=== PATIENT | male | born 1945 | race Caucasian/White ===

== ENCOUNTER 2017-11-02 14:36 | Emergency (ER) | payer OTHER ==
[2017-11-02 14:37] VITALS: BMI 26.6
[2017-11-02 14:47] VITALS: BP 156/72; RESP 16; TEMP 98.6; O2SAT 99
[2017-11-02 16:20] LABS: BASO % 0.5 % (0.0-2.0); EOS # 0.2 K/uL (0.0-0.7); EOS % 2.4 % (0.0-4.0); HEMOGLOBIN 15.5 g/dL (12.0-18.0); LYMPH % 23.5 % (20.0-40.0); MEAN CELL VOLUME 101.2 fl (80.0-94.0); MEAN CORPUSCULAR HEMOGLOBIN 34.7 pg (27.0-31.0); MEAN CORPUSCULAR HGB CONC 34.3 g/dL (33.0-37.0); MEAN PLATELET VOLUME 8.9 fl (7.2-11.7); NEUT # 5.1 K/uL (1.8-7.0); NEUT % 61.6 % (50.0-75.0); NRBC % 0.1 % (0.0-0.0); RBC 4.45 Mil/uL (4.40-5.90); RED CELL DISTRIBUTION WIDTH 12.9 % (11.5-14.5); WHITE BLOOD COUNT 8.3 K/uL (4.8-10.8)
[2017-11-02 16:36] LABS: CALCIUM 9.5 mg/dL (8.4-10.2); GFR NON-AFRICAN AMERICAN > 60; LIPASE 125 U/L (23-300)
[2017-11-02 16:42] LABS: ALB/GLOB RATIO 1.3 (1.0-2.1); ALBUMIN 4.5 g/dL (3.5-5.0); ALT/SGPT 39 U/L (21-72); AST/SGOT 67 U/L (17-59); BLOOD UREA NITROGEN 14 mg/dl (9-20)
--- NOTE | 2017-11-02 16:53 | RAD ---
Date of service: 11/02/2017 PROCEDURE: Right Foot Radiographs. HISTORY: foot pain COMPARISON: None. FINDINGS: BONES: Normal. No fracture. JOINTS: Normal. SOFT TISSUES: Normal. OTHER FINDINGS: None. IMPRESSION: Normal right foot radiographs.
--- NOTE | 2017-11-02 17:29 | US ---
Date of service: 11/02/2017 HISTORY: epigastric abd pain COMPARISON: None available. TECHNIQUE: Sonographic evaluation of the right upper quadrant of the abdomen. FINDINGS: LIVER: Measures 14.0 cm in length and appears otherwise unremarkable. No focal hepatic mass identified. The main portal vein appears patent with normal directional flow. No intrahepatic bile duct dilatation. GALLBLADDER: No gallstones. No gallbladder wall thickening or pericholecystic edema. Negative sonographic Goldberg's sign as assessed by the medical and health services manager. COMMON BILE DUCT: Measures 3 mm. PANCREAS: Not well-visualized. RIGHT KIDNEY: Measures 9.0 x 5.0 x 4.5 cm. No obstructing calculus or hydronephrosis identified. 0.9 x 0.8 x 0.7 cm hypoechoic, probable cyst. AORTA: Limited visualization appears grossly unremarkable. IVC: Limited visualization appears grossly unremarkable. OTHER FINDINGS: None . IMPRESSION: 0.9 cm probable right renal cyst. [place]
--- NOTE | 2017-11-02 18:03 | RAD ---
Date of service: 11/02/2017 HISTORY: epigastric abd pain COMPARISON: Chest radiographs 02/17/2014. FINDINGS: LUNGS: No active pulmonary disease. PLEURA: No significant pleural effusion identified, no pneumothorax apparent. CARDIOVASCULAR: Normal. OSSEOUS STRUCTURES: No significant abnormalities. VISUALIZED UPPER ABDOMEN: Normal. OTHER FINDINGS: None. IMPRESSION: No interval acute cardiopulmonary disease appreciated.
--- NOTE | 2017-11-02 19:04 | ED PDOC ---
HPI: General Adult Time Seen by Provider: 11/02/17 15:23 Chief Complaint (Nursing): GI Problem History Per: Patient Additional Complaint(s): Pt. states for the past 3 months he's had intermittent, non-radiating epigastric pain which seems to arise when he bends forward and after he eats. Also states that he's had atraumatic pain on the bottom of the R foot x 3 months which is worse when he walks. Denies chest pain, back pain, N/V/D, fever , trauma, SOB, CORRIGAN, palpitations. Of note, pt. states he had a stress test done "4 months" ago which was normal. Past Medical History Reviewed: Historical Data, Nursing Documentation, Vital Signs Vital Signs: Last Vital Signs Temp 98.6 F 11/02/17 14:45 Pulse 75 11/02/17 19:46 Resp 16 11/02/17 14:45 BP 156/72 H 11/02/17 14:45 Pulse Ox 99 11/02/17 19:46 - Medical History PMH: HTN Denies: Chronic Kidney Disease - Family History Family History: States: Unknown Family Hx - Home Medications Home Medications: Ambulatory Orders Medication Instructions Recorded Losartan/Hydrochlorothiazide 50 mg PO DAILY 02/17/14 [Losartan Potassium-Hydrochlorothiazide 12.5 M] Omeprazole 20 mg PO 04/27/14 Famotidine [Pepcid] 20 mg PO DAILY PRN #10 tab 11/02/17 - Allergies Allergies/Adverse Reactions: Allergies Allergy/AdvReac Type Severity Reaction Status Date / Time No Known Allergies Allergy Verified 02/17/14 13:20 Review of Systems ROS Statement: Except As Marked, All Systems Reviewed And Found Negative Gastrointestinal: Positive for: Abdominal Pain Musculoskeletal: Positive for: Foot Pain Physical Exam - Physical Exam Appears: Positive for: Well, Non-toxic, No Acute Distress Skin: Positive for: Normal Color, Warm. Negative for: Rash Eye Exam: Positive for: Normal appearance, EOMI, PERRL. Negative for: Scleral icterus ENT: Positive for: Normal ENT Inspection Neck: Positive for: Normal, Painless ROM Cardiovascular/Chest: Positive for: Regular Rate, Rhythm. Negative for: Tachycardia, Irregularly Irregular Respiratory: Positive for: Normal Breath Sounds. Negative for: Respiratory Distress Gastrointestinal/Abdominal: Positive for: Normal Exam, Bowel Sounds, Soft, Other (negative Goldberg's sign). Negative for: Tenderness (to deep palpation), Distended, Guarding Extremity: Positive for: Normal ROM, Other (R Foot and ankle without tenderness , swelling, deformity, skin changes, ) Neurologic/Psych: Positive for: Alert, Oriented (x3). Negative for: Aphasia, Facial Droop - Laboratory Results Result Diagrams: 11/02/17 16:09 11/02/17 16:09 - ECG ECG: Positive for: Interpreted By Me ECG Rhythm: Positive for: Sinus Rhythm. Negative for: ST/T Changes Rate: 75 O2 Sat by Pulse Oximetry: 99 - Progress ED Course And Treament: Labs, EKG, CXR, abd US, pepcid 20mg IV, IV NS bolus x 1 ordered. US Pt. informed of US results and advised to f/u regarding cyst. Disposition - Clinical Impression Clinical Impression: Foot pain, Gastritis - Disposition Referrals: [facility] [Outside] [facility] [Outside] Condition: IMPROVED Additional Instructions: KAYLI FLANAGAN, thank you for letting us take care of you today. Your provider was Jad Fontenot III, DO and you were treated for ABD PAIN, RIGHT FOOT PAIN. The emergency medical care you received today was directed at your acute symptoms. If you were prescribed any medication, please fill it and take as directed. It may take several days for your symptoms to resolve. Return to the Emergency Department if your symptoms worsen, do not improve, or if you have any other problems. Please contact your doctor or call one of the physicians/clinics you have been referred to that are listed on the Patient Visit Information form that is included in your discharge packet. Bring any paperwork you were given at discharge with you along with any medications you are taking to your follow up visit. Our treatment cannot replace ongoing medical care by a primary care provider outside of the emergency department. Thank you for allowing the [facility] team to be part of your care today. If you had an X-Ray or CT scan: A Radiologist will review the ED reading if any change in treatment is needed we will contact you. If you had a blood, urine, or wound culture: It will take several days for the results, if any change in treatment is needed we will contact you. If you had an STI test: It will take 48 hours for the results. Please call after 1 week if you have not heard back. Prescriptions: Famotidine [Pepcid] 20 mg PO DAILY PRN #10 tab PRN Reason: Dyspepsia Instructions: Heel Pain (Caused by Plantar Fasciitis) (DC), Gastritis (DC) Forms: [employer] (Polish) Print Language: GERMAN
[2017-11-02 19:46] VITALS: PULSE 75
--- NOTE | 2017-11-03 08:20 | CARD ---
APPROVED REPORT Date of service: 11/02/2017 <Conclusion> Normal sinus rhythm Normal ECG
== END 2017-11-02 19:30 | disposition home or self-care (01) ==
LOC: H.ER 14:36
DX: K29.70 Gastritis, unspecified, without bleeding (principal); M79.671 Pain in right foot; I10 Essential (primary) hypertension